=== PATIENT | male | born 1935 | race Caucasian/White ===

== ENCOUNTER → 2017-12-19 | Outpatient (CLI) | payer OTHER ==
[~2017-12-19] MED LIST: REGADENOSON 0.4 MG/5 ML PF SYG IVP SCH
== END | disposition home or self-care (01) ==
LOC: SHCH 08:21
PROVIDERS: ATTEND Internal Medicine Cardiovascular Disease
DX: R06.09 Other forms of dyspnea (principal)
CPT/HCPCS: 78452; 93017; 96374; A9500 ×2; J2785

== ENCOUNTER → 2018-01-02 | Outpatient (CLI) | payer OTHER | END | disposition home or self-care (01) | LOC: EDUNIT# 08:50 → SHCH 08:55 | PROVIDERS: ATTEND Internal Medicine Cardiovascular Disease | DX: I71.4 Abdominal aortic aneurysm, without rupture (principal) | CPT/HCPCS: 93978 ==

== ENCOUNTER 2019-04-10 08:55 | Day surgery (SDC) | payer OTHER ==
[~2019-04-10] VITALS: Ht 172.7 cm; Wt 100.2 kg
[2019-04-10 10:06] VITALS: BP 120/56
[2019-04-10 10:06] LABS: BASOPHILS % (AUTO) 0.4 % (0.0-5.0); EOSINOPHILS % (AUTO) 5.5 % (0.0-8.0); HEMATOCRIT 34.3 % (42-54); LYMPHOCYTES % (AUTO) 31.5 % (21.0-51.0); MEAN CORPUSCULAR HEMOGLOBIN 28.9 pg (27.0-33.0); MEAN CORPUSCULAR HGB CONC 30.6 g/dL (32.0-36.0); MEAN CORPUSCULAR VOLUME 94.5 fL (79-99); MONOCYTES % (AUTO) 9.1 % (3.0-13.0); PLATELET COUNT (AUTO) 198 K/uL (130-400); RED BLOOD CELL COUNT(AUTO) 3.63 MIL/uL (4.50-6.20); RED CELL DISTRIBUTION WIDTH 12.8 % (11.0-15.5); WHITE BLOOD COUNT (AUTO) 7.6 K/uL (4.8-10.8)
[2019-04-10 10:07] LABS: APPEARANCE,URINE CLOUDY (CLEAR); BILIRUBIN,URINE NEGATIVE (NEGATIVE); COLOR,URINE YELLOW (YELLOW); GLUCOSE, URINE (UA) NEGATIVE (NEGATIVE); KETONES,URINE NEGATIVE (NEGATIVE); LEUKOCYTE ESTERASE ,URINE LARGE (NEGATIVE); NITRATE,URINE POSITIVE (NEGATIVE); OCCULT BLOOD,URINE TRACE-INTACT (NEGATIVE); PROTEIN,URINE 30 mg/dL (NEGATIVE); UROBILINOGEN,URINE 0.2 mg/dL (0.2-1.0)
[2019-04-10 10:14] LABS: CREATININE 1.4 mg/dL (0.5-1.5)
[2019-04-10 10:27] LABS: INR 0.96 (0.85-1.15); PARTIAL THROMBOPLASTIN TIME 29.8 SEC (26.3-35.5); PROTHROMBIN TIME 10.1 SEC (9.6-11.6)
[2019-04-10 10:35] LABS: BACTERIA,URINE Many /HPF (None Seen); WBC,URINE TNTC /HPF (0-1)
[2019-04-10 10:36] LABS: SQUAMOUS EPITHELIAL CELL,UR Few /HPF (0-2)
[2019-04-10] MEDS ORDERED: ISOS30TA6 PO (11:07)
[2019-04-10] MEDS ORDERED: GLIP10TA9 PO (11:07)
[2019-04-10] MEDS ORDERED: CYAN500T63 PO (11:07)
[2019-04-10] MEDS ORDERED: LISI-613 PO (11:07)
[2019-04-10] MEDS ORDERED: RANO500T2 PO (11:07)
[2019-04-10] MEDS ORDERED: GLUC100019 PO (11:07)
[2019-04-10] MEDS ORDERED: VIT1CAPS5 PO (11:07)
[2019-04-10] MEDS ORDERED: BICA50TA7 PO (11:07)
[2019-04-10] MEDS ORDERED: ATEN50TA PO (11:07)
[2019-04-10] MEDS ORDERED: AEC81 PO (11:07)
[2019-04-10] MEDS ORDERED: SIMV-43 PO (11:07)
[2019-04-10] MEDS ORDERED: INSU100I21 SQ (11:07)
[2019-04-10] MEDS ORDERED: AMLO5TAB9 PO (11:07)
[2019-04-10] MEDS ORDERED: FINA5TAB41 PO (11:07)
[2019-04-12] VITALS (9 sets, daily range): BP systolic 111–137; BP diastolic 54–62
[2019-04-12] MEDS ORDERED: SODIUM CHLORIDE 0.9% 1000ML 1,000 ML IV ONE ×2 (10:43→12:26)
--- NOTE | 2019-04-12 11:20 | NUR ---
PATIENT ARRIVED TO DAY PATIENT ACCOMPANIED BY SPOUSE. PATIENT AAOX3, VITAL SIGNS STABLE. DENIES PAIN AT THIS TIME. PATIENT IS LEGALLY BLIND AND USES WALKING STICK.
[2019-04-12] MEDS ORDERED: CEFTRIAXONE SODIUM 1 GM ONE (12:26)
[2019-04-12] MEDS ORDERED: CEFTRIAXONE SODIUM 1 GM IVP SCH (12:30)
[2019-04-12] MEDS ORDERED: IOHEXOL-350 50ML VIAL IV ONE (14:39)
[2019-04-12] MEDS ORDERED: IOHEXOL 350 MG/ML 100ML INFUS..BTL IV ONE (14:39)
[2019-04-12] MEDS ORDERED: MIDAZOLAM HCL 1 MG/ML 2ML VIAL ONE ×2 (14:39→15:21)
[2019-04-12] MEDS ORDERED: LIDOCAINE HCL 2% 20ML ONE ×2 (14:39→15:12)
[2019-04-12] MEDS ORDERED: FENTANYL CITRATE PF 50 MCG/1 ML 2ML VIAL ONE (14:39)
[2019-04-12] MEDS ORDERED: BIVALIRUDIN 250 MG/VIAL IV ONE (14:40)
--- NOTE | 2019-04-12 15:15 | NUR ---
REPORT GIVEN TO YUNIOR HAIDER RN USING SBAR. PATIENT IN OVEN DUMPER RIGHT NOW,.
[2019-04-12] MEDS ORDERED: HEPARIN SODIUM 1000UNIT/ML 10ML VIAL ONE (15:21)
[2019-04-12] MEDS ORDERED: NITROGLYCERIN 0.4 MG SL TAB SL PRN (15:45)
[2019-04-12] MEDS ORDERED: DEXTROSE 50%-WATER 50 ML DISP.SYRIN IV PRN (15:45)
[2019-04-12] MEDS ORDERED: GLUCAGON 1MG KIT 1 MG ML IM PRN (15:45)
[2019-04-12] MEDS ORDERED: HYDRALAZINE HCL 20 MG/ML VIAL IV PRN (15:45)
[2019-04-12] MEDS ORDERED: INSULIN HUMULIN R 100 UNIT/ML 3ML SQ SCH (16:30)
--- NOTE | 2019-04-12 20:00 | NUR ---
PT LEFT VIA WHEELCHAIR IN PVT CAR. D/C INSTRUCTIONS GIVEN ALSO SHE WAS ASKED TO CALL MONDAY TO SCHEDULE F/U APPT. PT. V/S STABLE WITH DRESSING INTACT, NO BLEEDING, NO PAIN, NO HEMATOMA TO BILATERAL GROINS AND DP INTACT BILATERALLY.
== END 2019-04-12 20:00 | disposition home or self-care (01) ==
LOC: DAH 08:55 → EDSTATUS 09:00 → DAH 04-12 08:55 → EDSTATUS 04-12 09:00 → UNDOADMOB 04-12 10:25 → DAHIP 04-12 10:25 → DAH 04-12 20:00
PROVIDERS: ATTEND Internal Medicine Cardiovascular Disease
DX: I25.118 Atherosclerotic heart disease of native coronary artery with other forms of angina pectoris (principal); I10 Essential (primary) hypertension; E11.9 Type 2 diabetes mellitus without complications; E78.5 Hyperlipidemia, unspecified; I27.20 Pulmonary hypertension, unspecified; K21.9 Gastro-esophageal reflux disease without esophagitis; Z88.2 Allergy status to sulfonamides; Z88.1 Allergy status to other antibiotic agents; Z87.891 Personal history of nicotine dependence; Z79.84 Long term (current) use of oral hypoglycemic drugs; Z79.899 Other long term (current) drug therapy; Z79.82 Long term (current) use of aspirin; Z82.49 Family history of ischemic heart disease and other diseases of the circulatory system; Z83.3 Family history of diabetes mellitus
CPT/HCPCS: 36415; 71045; 80048; 81001; 82948 ×2; 85025; 85610; 85730; 93005; 93460; A4215; A4216; A4221; A4222; A4223 ×3; A4606; A4663; C1769 ×2; C1894 ×3; J0696; J1644 ×2; J2250 ×2; J3010; J3490 ×2; J7030 ×2; Q9965; Q9967 ×2; 99156; 99157; J0583

== ENCOUNTER → 2019-04-17 | Outpatient (CLI) | payer OTHER ==
--- NOTE | 2019-04-11 15:19 | NUR ---
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
[~2019-04-17] MED LIST changes: +AEC81 PO; +AMLO5TAB9 PO; +ATEN50TA PO; +BICA50TA7 PO; +CEFTRIAXONE SODIUM 1 GM IVP SCH; +CYAN500T63 PO; +FINA5TAB41 PO; +GLIP10TA9 PO; +GLUC100019 PO; +INSU100I21 SQ; +ISOS30TA6 PO; +LISI-613 PO; +RANO500T2 PO; -REGADENOSON 0.4 MG/5 ML PF SYG IVP SCH; +SIMV-43 PO; +VIT1CAPS5 PO
== END | disposition home or self-care (01) ==
LOC: RAH 07:49
PROVIDERS: ATTEND Internal Medicine Cardiovascular Disease
DX: I71.4 Abdominal aortic aneurysm, without rupture (principal)
CPT/HCPCS: 76775